=== PATIENT | female | born 1940 | race Caucasian/White ===

== ENCOUNTER 2021-12-19 11:30 | Emergency (ER) | payer MEDICARE, SELFPAY ==
[2021-12-19 12:00] VITALS: BP 165/85; PULSE 60; RESP 17; TEMP 36.6; O2SAT 98
[2021-12-19 12:23] VITALS: BP 138/87; PULSE 60; RESP 16; O2SAT 97
--- NOTE | 2021-12-19 12:31 | ED_ITS ---
HPI - Fall General Chief Complaint: Fall Stated Complaint: Fall, hit knees, hands, head Time Seen by Provider: 12/19/21 12:30 Source: patient Mode of arrival: Ambulatory History of Present Illness HPI Narrative: Patient is a 81-year-old female history of coronary artery disease hyperlipidemia she does take aspirin 81 mg daily presenting today after a ground level fall 3 days ago. She says she tripped on on the even pavement she had try focal difficulty and fell directly to her knees. It appears that she scratched her glasses she has a small abrasion on her nose. She does not think she hit her head. She was able to attend a wedding that she was walking into without any problems. She has chronic ongoing neck pain she has no numbness tingling or weakness. She has not had any nausea or vomiting. She is quite worried because her had intracranial hemorrhage after a fall similar to hers. She has no difficulty walking Related Data Home Medications Medication Instructions Recorded Confirmed ASPIRIN (#[facility] (ASA)) 325 mg PO Q DAY ##0 11/08/10 [GLUCOSAMINE] PO Q DAY ##0 11/08/10 CA PANTOTHENATE/FOLIC ACID/VIT ##0 08/27/12 (MULTIVITAMIN) CHOLECALCIFEROL (VITAMIN D3) 1,000 units PO QDAY ##0 08/27/12 (VITAMIN D3) aspirin 81 mg capsule 81 mg PO DAILY 12/19/21 12/19/21 atorvastatin 40 mg tablet (Lipitor) 40 mg PO BEDTIME 12/19/21 12/19/21 isosorbide mononitrate 30 mg 30 mg PO DAILY 12/19/21 12/19/21 tablet,extended release 24 hr levothyroxine 112 mcg tablet 112 mcg PO DAILY 12/19/21 12/19/21 Previous Rx's Medication Instructions Recorded conjugated estrogens 0.625 mg/gram 0.625 mg VG TWICE WEEKLY #1 tube 11/04/12 vaginal cream (Premarin) Allergies Allergy/AdvReac Type Severity Reaction Status Date / Time Niacin Allergy Unknown RASH Uncoded 12/19/21 12:02 TAPE Allergy Unknown BLISTER/BRUISE Uncoded 12/19/21 12:02 (PAPER IS OKAY) Review of Systems Review of Systems Narrative: GENERAL: Denies chills, fatigue, malaise, fever, sweats, travel HEENT: Denies sinus pain, ear pain, sore throat, difficulty swallowing, neck pain RESPIRATORY: Denies dyspnea, cough, wheezing, hemoptysis, sputum. CARDIOVASCULAR: Denies chest pain, palpitations, orthopnea, edema GASTROINTESTINAL: Denies nausea, vomiting, abdominal pain, diarrhea, constipation, melena. : Denies dysuria, frequency, incontinence, hematuria, urinary retention, flank pain. MUSCULOSKELETAL: See HPI SKIN: No rash, no erythema, no pruritus NEUROLOGIC: Denies weakness, dizziness, headache, numbness, change in speech, confusion PSYCHIATRIC: No concerning psychosocial issues. 12 point review of systems is negative except for those stated above and HPI Patient History Surgical History History of bladder suspension procedure History of knee replacement History of lumpectomy Status post vaginal hysterectomy Social History Smoking Status: Never smoker Smoking Status: Never smoker alcohol intake frequency: other Substance Use Type: does not use Exam Initial Vital Signs Initial Vital Signs: Vital Signs Temperature 98 F 12/19/21 12:00 Pulse Rate 60 12/19/21 12:00 Respiratory Rate 17 12/19/21 12:00 Blood Pressure 165/85 H 12/19/21 12:00 Pulse Oximetry 98 12/19/21 12:00 Oxygen Delivery Method 12/19/21 12:00 GENERAL: Alert pleasant 81-year-old pain HEENT: Head atraumatic,EOMI, pupils reactive, face symmetric, moist mucous membranes NECK: Minimal vertebral tenderness no guarding no rebound CARDIOVASCULAR: Regular rate and rhythm without murmurs, rubs or gallops. RESPIRATORY: Breath sounds equal bilaterally, no wheezes rales or rhonchi. ABDOMEN: Soft, nontender. Normoactive bowel sounds all 4 quadrants. No guarding or rebound. EXTREMITIES: Normal range of motion, no clubbing or edema. Neurovascularly intact NEUROLOGICAL: Alert and oriented x4.Normal gait and speech. Cranial nerves II through XII grossly intact. Good [id number], good [id number], strength equal bilaterally, no dysarthria or aphasia, sensation in tact to soft touch bilaterally, no visual changes, no facial droop SKIN: Minimal bilateral knee abrasions no lacerations. Small abrasion noted on nose well Scores GCS [place] coma scale eye opening: Spontaneous Dot coma scale verbal response: Orientated Dot coma scale motor response: Obey commands [place] coma scale total score: 15 Course Orders Ordered: ED Orders 12/19/21 12:40 CT cervical spine wo con Stat CT head/brain wo con Stat Vital Signs Vital signs: Vital Signs - 8 hr 12/19/21 12:00 12/19/21 12:23 Temperature 98 F Pulse Rate 60 60 Respiratory Rate 17 16 Blood Pressure 165/85 H 138/87 Pulse Oximetry 98 97 Oxygen Delivery Method Room Air Room Air MDM - Fall Imaging Data CT scan - head: Radiologist's Impression: ?Nae Lawson MR#: [id number] : 1940 Acct:[id number] Age/Sex: 81 / F Date of Service: 12/19/21 Loc: ED Accession Number: [id number] ?? Procedure: CT head/brain wo con Ordering Provider: Yolette Jean Baptiste D.O. PROCEDURE:? CT HEAD/BRAIN WO CON ? INDICATIONS:? fall on asa 3 days ago ? TECHNIQUE:? Noncontrast 4.5 mm thick angled axial sections acquired from the foramen magnum to the vertex, with coronal and sagittal reformats.? For radiation dose reduction, the following was used:? automated exposure control, adjustment of mA and/or kV according to patient size.? ? COMPARISON:? None. ? FINDINGS:? Image quality:? Excellent.? ? CSF spaces:? Basal cisterns are patent.? No extra-axial fluid collections.? Ventricles are normal in size and shape.? ? Brain:? No midline shift.? No intracranial masses or hemorrhage.? Quijano-white matter interface is normal.? ? Skull and face:? Calvarium and visualized facial bones are intact, without suspicious lesions.? ? Sinuses:? Visualized sinuses and mastoids are clear.? ? IMPRESSION:? No acute intracranial findings. ? ? Dictated by: Anum Johnson M.D. on 12/19/2021 at 13:03 ? ? Approved by: Anum Johnson M.D. on 12/19/2021 at 13:0 CT - cervical spine: Radiologist's Impression: ?Nae Lawson MR#: [id number] : 1940 Acct:[id number] Age/Sex: 81 / F Date of Service: 12/19/21 Loc: ED Accession Number: [id number] ?? Procedure: CT cervical spine wo con Ordering Provider: Yolette Jean Baptiste D.O. PROCEDURE:? CT CERVICAL SPINE WO CON ? INDICATIONS:? fall on asa 3 days ago ? TECHNIQUE:? Noncontrast 3 mm thick sections acquired from the skull base to the T4 level.? Sagittal and coronal reformats were then constructed.? For radiation dose reduction, the following was used:? automated exposure control, adjustment of mA and/or kV according to patient size.? ? COMPARISON:? None. ? FINDINGS:? Image quality:? Excellent.? ? Bones:? No fractures or dislocations.? Visualized superior ribs are intact.? ? Soft tissues:? Prevertebral soft tissues are normal in thickness.? No paravertebral hematomas.? No apical pneumothoraces.? ? ? IMPRESSION:? No acute cervical spine injury. ? Dictated by: Anum Johnson M.D. on 12/19/2021 at 13:01 ? ? MDM Narrative Medical decision making narrative: Patient had mechanical fall 3 days ago she is on aspirin. She has no focal deficits. No headache nausea or vomiting. She is elderly and does have some risk factors head CT is fortunately negative along with CT cervical spine. Discharge Plan Departure Patient Disposition: Home Clinical Impression: Fall Instructions: How to Prevent Falls Activity Restrictions/Additional Instructions: *You have been diagnosed with fall *What to do: At this time CT scans are negative no evidence of bleeding. Recommend walker or cane *Continue to take medications as directed *Follow up with your primary care provider in 2-3 days or call [phone] *Return to ER if you should have nausea vomiting headache weakness numbness tingling or any new, worsening or concerning symptoms Prescriptions: No Action ASPIRIN (#[facility] (ASA)) 325 mg PO Q DAY Qty: 0 [GLUCOSAMINE] PO Q DAY Qty: 0 CA PANTOTHENATE/FOLIC ACID/VIT (MULTIVITAMIN) Qty: 0 CHOLECALCIFEROL (VITAMIN D3) (VITAMIN D3) 1,000 units PO QDAY Qty: 0 conjugated estrogens [Premarin] 0.625 MG/GM cream 0.625 mg VG TWICE WEEKLY Qty: 1 5RF atorvastatin [Lipitor] 40 mg Tablet 40 mg PO BEDTIME isosorbide mononitrate 30 mg Tablet Extended Release 24 Hr 30 mg PO DAILY levothyroxine 112 mcg Tablet 112 mcg PO DAILY aspirin 81 mg Capsule 81 mg PO DAILY Referrals: Chuck Horton MD [Primary Care Provider] - Visit Report Forms: Patient Portal/API
--- NOTE | 2021-12-19 12:40 | DI.CT.S_ITS ---
PROCEDURE: CT CERVICAL SPINE WO CON INDICATIONS: fall on asa 3 days ago TECHNIQUE: Noncontrast 3 mm thick sections acquired from the skull base to the T4 level. Sagittal and coronal reformats were then constructed. For radiation dose reduction, the following was used: automated exposure control, adjustment of mA and/or kV according to patient size. COMPARISON: None. FINDINGS: Image quality: Excellent. Bones: No fractures or dislocations. Visualized superior ribs are intact. Soft tissues: Prevertebral soft tissues are normal in thickness. No paravertebral hematomas. No apical pneumothoraces. IMPRESSION: No acute cervical spine injury. Dictated by: Anum Johnson M.D. on 12/19/2021 at 13:01 Approved by: Anum Johnson M.D. on 12/19/2021 at 13:03
--- NOTE | 2021-12-19 12:40 | DI.CT.S_ITS ---
PROCEDURE: CT HEAD/BRAIN WO CON INDICATIONS: fall on asa 3 days ago TECHNIQUE: Noncontrast 4.5 mm thick angled axial sections acquired from the foramen magnum to the vertex, with coronal and sagittal reformats. For radiation dose reduction, the following was used: automated exposure control, adjustment of mA and/or kV according to patient size. COMPARISON: None. FINDINGS: Image quality: Excellent. CSF spaces: Basal cisterns are patent. No extra-axial fluid collections. Ventricles are normal in size and shape. Brain: No midline shift. No intracranial masses or hemorrhage. Quijano-white matter interface is normal. Skull and face: Calvarium and visualized facial bones are intact, without suspicious lesions. Sinuses: Visualized sinuses and mastoids are clear. IMPRESSION: No acute intracranial findings. Dictated by: Anum Johnson M.D. on 12/19/2021 at 13:03 Approved by: Anum Johnson M.D. on 12/19/2021 at 13:05
== END 2021-12-19 13:51 | disposition home or self-care (01) ==
PROVIDERS: Emergency Provider Emergency Medicine; Family Provider Family Medicine; PCP Family Medicine
DX: S00.31XA Abrasion of nose, initial encounter (principal); S89.92XA Unspecified injury of left lower leg, initial encounter; S89.91XA Unspecified injury of right lower leg, initial encounter; M54.2 Cervicalgia; W19.XXXA Unspecified fall, initial encounter; S09.90XA Unspecified injury of head, initial encounter
CPT/HCPCS: 70450; 72125; 99281; 99284